=== PATIENT | female | born 1995 | race Caucasian/White ===

== ENCOUNTER 2018-06-30 13:27 | Emergency (ER) | payer BC, MEDICAID ==
[2018-06-30] MEDS: IBUPROFEN 600 MG TAB PO (14:25)
== END 2018-06-30 16:22 | disposition home or self-care (01) ==
LOC: FTE 13:27
DX: M79.604 Pain in right leg (principal); I10 Essential (primary) hypertension
CPT/HCPCS: 93971; 99284-25

== ENCOUNTER 2018-08-23 21:57 | Inpatient (IN) | payer BC ==
[2018-08-23 22:35] LABS: ADD MAN DIFF? NO
[2018-08-23] MEDS: HYDROmorphONE 1 MG/ML SYG IV (22:35)
[2018-08-23] MEDS: ONDANSETRON 4 MG INJ IV (22:35)
[2018-08-23] MEDS: SOD CHLORIDE 0.9% 1,000 ML IV (22:35)
[2018-08-23 22:36] LABS: WHITE BLOOD COUNT 10.6 10^3/ul (4.8-10.8)
[2018-08-23 22:36] LABS: BASOPHILS % 0.1 % (0.0-2.0); HEMATOCRIT 46.8 % (37.0-47.0); HEMOGLOBIN 15.3 g/dl (12.0-16.0); MEAN CORPUSCULAR HEMOGLOBIN 30.2 pg (29.0-33.0); MEAN CORPUSCULAR HGB CONC 32.7 g/dl (32.0-37.0); MEAN CORPUSCULAR VOLUME 92.5 fl (82.0-101.0); MEAN PLATELET VOLUME 10.6 fl (7.4-10.4); MONOCYTE # 0.6 10^3/ul (0.3-0.9); MONOCYTES % 5.3 % (0.0-11.0); NEUTROPHIL # 7.9 10^3/ul (1.6-7.5); NEUTROPHILS % 74.8 % (39.0-77.0); PLATELET COUNT 333 10^3/UL (140-415); RED BLOOD COUNT 5.06 10^6/ul (4.20-5.40); RED CELL DISTRIBUTION WIDTH 12.9 % (11.5-14.5)
[2018-08-23 22:54] LABS: ANION GAP 16 (5-13); BLOOD UREA NITROGEN 20 mg/dl (7-20); CALCIUM 9.2 mg/dl (8.4-10.2); CARBON DIOXIDE 22 mmol/L (21-31); CHLORIDE 105 mmol/L (97-110); CREATININE 0.67 mg/dl (0.44-1.00); Estimated GFR > 60 mL/min (>60); GLUCOSE 185 mg/dl (70-220); POTASSIUM 4.4 mmol/L (3.5-5.1); SODIUM 143 mmol/L (135-144)
[2018-08-23 22:55] LABS: INR 0.89; PROTIME 12.2 Sec (11.9-14.9)
[2018-08-23 22:56] LABS: PARTIAL THROMBOPLASTIN TIME 25.3 Sec (23.0-35.0)
[2018-08-23] MEDS ORDERED: ACETAMINOPHEN 325 MG TAB PO (23:00)
[2018-08-23] MEDS ORDERED: ONDANSETRON 4 MG INJ IV (23:00)
[2018-08-23] MEDS: HYDROmorphONE 0.5 MG/0.5 ML SYG IV (23:59)
[2018-08-24] MEDS ORDERED: morphine 2 MG INJ IV (01:00)
[2018-08-24] MEDS: HYDROmorphONE 1 MG/ML SYG IV ×6 (02:30→23:30)
[2018-08-24] MEDS ORDERED: PATIENT'S OWN MEDICATION PO (09:00)
[2018-08-24] MEDS: ONDANSETRON 4 MG INJ IV (09:12)
[2018-08-24] MEDS: MAGNESIUM OXIDE 400 MG TAB PO ×2 (09:12→21:53)
[2018-08-24] MEDS: ENOXAPARIN 30 MG/0.3 ML SYG SC (09:18)
[2018-08-24] MEDS: ACETAZOLAMIDE 250 MG TAB PO ×2 (09:33→21:53)
[2018-08-24] MEDS: predniSONE 20 MG TAB PO (10:56)
[2018-08-24] MEDS: ZONISAMIDE 100 MG CAP PO (21:51)
[2018-08-24] MEDS: NORTRIPTYLINE 10 MG CAP PO (21:51)
[2018-08-24] MEDS: DOCUSATE SODIUM 100 MG CAP PO (21:53)
[2018-08-25 05:35] LABS: ADD MAN DIFF? NO
[2018-08-25 05:37] LABS: BASOPHILS % 0.2 % (0.0-2.0); HEMATOCRIT 47.3 % (37.0-47.0); HEMOGLOBIN 15.6 g/dl (12.0-16.0); LYMPHOCYTES # 2.6 10^3/ul (0.8-2.9); MEAN CORPUSCULAR VOLUME 93.8 fl (82.0-101.0); MEAN PLATELET VOLUME 10.8 fl (7.4-10.4); MONOCYTE # 0.6 10^3/ul (0.3-0.9); MONOCYTES % 5.1 % (0.0-11.0); NEUTROPHIL # 8.5 10^3/ul (1.6-7.5); NEUTROPHILS % 72.1 % (39.0-77.0); PLATELET COUNT 323 10^3/UL (140-415); RED BLOOD COUNT 5.04 10^6/ul (4.20-5.40); RED CELL DISTRIBUTION WIDTH 12.9 % (11.5-14.5)
[2018-08-25 05:37] LABS: WHITE BLOOD COUNT 11.8 10^3/ul (4.8-10.8)
[2018-08-25] MEDS: HYDROmorphONE 1 MG/ML SYG IV ×4 (05:43→20:57)
[2018-08-25 06:00] LABS: HEMOGLOBIN A1C 5.5 % (0-5.9)
[2018-08-25 06:28] LABS: ALANINE AMINOTRANSFERASE 20 IU/L (13-69); ALBUMIN 4.2 g/dl (3.3-4.9); ALBUMIN/GLOBULIN RATIO 1.27; ALKALINE PHOSPHATASE 65 IU/L (42-121); ANION GAP 13 (5-13); ASPARTATE AMINO TRANSFERASE 18 IU/L (15-46); BILIRUBIN,INDIRECT 0.2 mg/dl (0-1.1); BILIRUBIN,TOTAL 0.2 mg/dl (0.2-1.3); BLOOD UREA NITROGEN 14 mg/dl (7-20); CALCIUM 9.7 mg/dl (8.4-10.2); CARBON DIOXIDE 18 mmol/L (21-31); CHLORIDE 107 mmol/L (97-110); CREATININE 0.82 mg/dl (0.44-1.00); Estimated GFR > 60 mL/min (>60); GLUCOSE 129 mg/dl (70-220); SODIUM 138 mmol/L (135-144); TOTAL PROTEIN 7.5 g/dl (6.1-8.1)
[2018-08-25] MEDS: GIANVI PO (09:27)
[2018-08-25] MEDS: ENOXAPARIN 30 MG/0.3 ML SYG SC (09:27)
[2018-08-25] MEDS: predniSONE 20 MG TAB PO (09:28)
[2018-08-25] MEDS: ACETAZOLAMIDE 250 MG TAB PO ×2 (09:28→20:57)
[2018-08-25] MEDS: MAGNESIUM OXIDE 400 MG TAB PO ×2 (09:28→20:57)
[2018-08-25] MEDS: DOCUSATE SODIUM 100 MG CAP PO ×2 (09:28→20:57)
[2018-08-25] MEDS: ZONISAMIDE 100 MG CAP PO (20:57)
[2018-08-25] MEDS: NORTRIPTYLINE 10 MG CAP PO (21:01)
[2018-08-26] MEDS: HYDROmorphONE 1 MG/ML SYG IV ×6 (01:58→22:26)
[2018-08-26] MEDS: predniSONE 20 MG TAB PO (09:44)
[2018-08-26] MEDS: GIANVI PO (09:44)
[2018-08-26] MEDS: MAGNESIUM OXIDE 400 MG TAB PO ×2 (09:44→20:51)
[2018-08-26] MEDS: DOCUSATE SODIUM 100 MG CAP PO ×2 (09:44→20:51)
[2018-08-26] MEDS: ACETAZOLAMIDE 250 MG TAB PO ×2 (09:44→20:51)
[2018-08-26] MEDS: ENOXAPARIN 30 MG/0.3 ML SYG SC (09:48)
[2018-08-26] MEDS: BISACODYL 10 MG SUPP PR (11:08)
[2018-08-26] MEDS: SENNA TAB PO ×2 (12:28→20:51)
[2018-08-26] MEDS: ZONISAMIDE 100 MG CAP PO (20:51)
[2018-08-26] MEDS: NORTRIPTYLINE 10 MG CAP PO (20:51)
[2018-08-27] MEDS: ACETAMINOPHEN 325 MG TAB PO ×3 (02:26→20:30)
[2018-08-27] MEDS: HYDROmorphONE 1 MG/ML SYG IV ×5 (03:38→20:30)
[2018-08-27] MEDS: ONDANSETRON 4 MG INJ IV (09:16)
[2018-08-27] MEDS: NACL 0.9% 3 ML SYG IV (09:23)
[2018-08-27] MEDS: ENOXAPARIN 30 MG/0.3 ML SYG SC (09:28)
[2018-08-27] MEDS: MAGNESIUM OXIDE 400 MG TAB PO ×2 (09:35→20:30)
[2018-08-27] MEDS: DOCUSATE SODIUM 100 MG CAP PO ×2 (09:35→20:30)
[2018-08-27] MEDS: SENNA TAB PO ×2 (09:35→20:29)
[2018-08-27] MEDS: ACETAZOLAMIDE 250 MG TAB PO ×2 (09:35→20:30)
[2018-08-27] MEDS: predniSONE 20 MG TAB PO (09:38)
[2018-08-27] MEDS: GIANVI PO (09:39)
[2018-08-27] MEDS: ZONISAMIDE 100 MG CAP PO (20:30)
[2018-08-27] MEDS: NORTRIPTYLINE 10 MG CAP PO (22:52)
[2018-08-28] MEDS: HYDROmorphONE 1 MG/ML SYG IV ×6 (00:23→23:16)
[2018-08-28] MEDS: PANTOPRAZOLE (EC) 40 MG TAB PO ×2 (04:44→08:58)
[2018-08-28 05:10] LABS: ADD MAN DIFF? NO
[2018-08-28 05:18] LABS: ABNORMAL IP MESSAGE 1; BASOPHILS % 0.2 % (0.0-2.0); EOSINOPHILS # 0.1 10^3/ul (0.0-0.5); EOSINOPHILS % 0.3 % (0.0-7.0); HEMATOCRIT 45.1 % (37.0-47.0); LYMPHOCYTES % 36.6 % (15.0-51.0); MEAN CORPUSCULAR HEMOGLOBIN 30.8 pg (29.0-33.0); MEAN CORPUSCULAR HGB CONC 33.3 g/dl (32.0-37.0); MEAN CORPUSCULAR VOLUME 92.6 fl (82.0-101.0); MEAN PLATELET VOLUME 10.5 fl (7.4-10.4); MONOCYTE # 1.1 10^3/ul (0.3-0.9); MONOCYTES % 6.8 % (0.0-11.0); NEUTROPHIL # 9.1 10^3/ul (1.6-7.5); NEUTROPHILS % 55.4 % (39.0-77.0); PLATELET COUNT 346 10^3/UL (140-415); RED BLOOD COUNT 4.87 10^6/ul (4.20-5.40)
[2018-08-28 05:18] LABS: WHITE BLOOD COUNT 16.4 10^3/ul (4.8-10.8)
[2018-08-28 05:38] LABS: ANION GAP 11 (5-13); BLOOD UREA NITROGEN 20 mg/dl (7-20); CALCIUM 9.1 mg/dl (8.4-10.2); CARBON DIOXIDE 19 mmol/L (21-31); CHLORIDE 107 mmol/L (97-110); CREATININE 0.92 mg/dl (0.44-1.00); Estimated GFR > 60 mL/min (>60); GLUCOSE 99 mg/dl (70-220); POTASSIUM 3.7 mmol/L (3.5-5.1); SODIUM 137 mmol/L (135-144)
[2018-08-28 05:48] LABS: POSITIVE DIFF @See below
[2018-08-28] MEDS: MAGNESIUM OXIDE 400 MG TAB PO ×2 (08:58→21:00)
[2018-08-28] MEDS: SENNA TAB PO ×2 (08:58→21:00)
[2018-08-28] MEDS: ACETAZOLAMIDE 250 MG TAB PO ×2 (08:58→21:00)
[2018-08-28] MEDS: predniSONE 20 MG TAB PO (08:58)
[2018-08-28] MEDS: GIANVI PO (08:59)
[2018-08-28] MEDS: DOCUSATE SODIUM 100 MG CAP PO ×3 (08:59→23:20)
[2018-08-28] MEDS ORDERED: THROMBIN 5000 UNIT VIAL (18:36)
[2018-08-28] MEDS ORDERED: MIDAZOLAM 1 MG/ML 2 ML INJ (20:11)
[2018-08-28] MEDS ORDERED: ONDANSETRON 4 MG INJ (20:47)
[2018-08-28] MEDS ORDERED: CEFAZOLIN 1 GM INJ (20:47)
[2018-08-28] MEDS ORDERED: DEXAMETHASONE 4 MG/ML 5 ML INJ (20:47)
[2018-08-28] MEDS: ZONISAMIDE 100 MG CAP PO (21:00)
[2018-08-28] MEDS ORDERED: AL HYDROX/MG HYDROX/SIMETH 30 ML CUP PO (21:30)
[2018-08-28] MEDS ORDERED: NACL 0.9% 3 ML SYG IV (21:30)
[2018-08-28] MEDS ORDERED: ONDANSETRON 4 MG INJ IV ×2 (21:30→22:30)
[2018-08-28] MEDS ORDERED: NALOXONE (0.4 MG/ML) INJ IV (21:30)
[2018-08-28] MEDS: GELATIN SIZE 100 SPONGE ×2 (21:42→21:43)
[2018-08-28] MEDS: HEPARIN 1000 UNITS/ML 10 ML INJ (21:44)
[2018-08-28] MEDS: CEFAZOLIN 1 GM INJ (21:44)
[2018-08-28] MEDS: HEMOSTATIC MATRIX/ THROMBIN 1 EA SYG ZFS (21:46)
[2018-08-28] MEDS: CEFAZOLIN 2 GM/50 ML (PMX) 50 ML IVPB (22:00)
[2018-08-28] MEDS ORDERED: LABETALOL HCL 20MG INJ IV (22:30)
[2018-08-28] MEDS ORDERED: HYDROmorphONE 0.5 MG/0.5 ML SYG IV ×3 (22:30)
[2018-08-28] MEDS ORDERED: LIDOCAINE 2% (SDV) 5 ML INJ (23:10)
[2018-08-28] MEDS ORDERED: SUGAMMADEX SODIUM 200 MG/2 ML VIAL IV (23:10)
[2018-08-28] MEDS ORDERED: ROCURONIUM 50 MG INJ ×3 (23:10)
[2018-08-28] MEDS ORDERED: PROPOFOL 20 ML (23:10)
[2018-08-28] MEDS ORDERED: METOPROLOL 5 MG INJ ×2 (23:10)
[2018-08-28] MEDS ORDERED: ROPIVACAINE 0.5 % 30 ML VIAL (23:10)
[2018-08-28] MEDS: NORTRIPTYLINE 10 MG CAP PO (23:20)
[2018-08-28] MEDS: HYDROmorphONE 0.2 MG/ML PCA IV (23:34)
[2018-08-29] MEDS: ACETAMINOPHEN 325 MG TAB PO ×2 (00:48→20:14)
[2018-08-29 05:24] LABS: HEMATOCRIT 43.8 % (37.0-47.0); HEMOGLOBIN 14.4 g/dl (12.0-16.0)
[2018-08-29 05:55] LABS: ANION GAP 9 (5-13); BLOOD UREA NITROGEN 18 mg/dl (7-20); CALCIUM 8.9 mg/dl (8.4-10.2); CARBON DIOXIDE 19 mmol/L (21-31); CHLORIDE 106 mmol/L (97-110); CREATININE 0.77 mg/dl (0.44-1.00); Estimated GFR > 60 mL/min (>60); GLUCOSE 120 mg/dl (70-220); POTASSIUM 3.8 mmol/L (3.5-5.1); SODIUM 134 mmol/L (135-144)
[2018-08-29] MEDS: HYDROmorphONE 0.2 MG/ML PCA IV ×3 (06:36→18:31)
[2018-08-29] MEDS: CEFAZOLIN 2 GM/50 ML (PMX) 50 ML IVPB ×3 (08:03→22:09)
[2018-08-29] MEDS: DOCUSATE SODIUM 100 MG CAP PO ×4 (09:00→20:20)
[2018-08-29] MEDS: GIANVI PO (11:17)
[2018-08-29] MEDS: MAGNESIUM OXIDE 400 MG TAB PO ×2 (11:18→20:15)
[2018-08-29] MEDS: ACETAZOLAMIDE 250 MG TAB PO ×2 (11:18→20:15)
[2018-08-29] MEDS: SENNA TAB PO ×2 (11:19→20:15)
[2018-08-29] MEDS: predniSONE 20 MG TAB PO (11:19)
[2018-08-29] MEDS: HYDROmorphONE 1 MG/ML SYG IV (20:12)
[2018-08-29] MEDS: NORTRIPTYLINE 10 MG CAP PO (20:15)
[2018-08-29] MEDS: ZONISAMIDE 100 MG CAP PO (20:15)
[2018-08-30] MEDS: HYDROmorphONE 0.2 MG/ML PCA IV ×3 (00:06→14:53)
[2018-08-30] MEDS: HYDROmorphONE 1 MG/ML SYG IV ×2 (00:12→21:45)
[2018-08-30] MEDS: ACETAMINOPHEN 325 MG TAB PO (02:09)
[2018-08-30] MEDS: PANTOPRAZOLE (EC) 40 MG TAB PO (06:05)
[2018-08-30] MEDS: CEFAZOLIN 2 GM/50 ML (PMX) 50 ML IVPB ×3 (06:05→21:52)
[2018-08-30] MEDS: DOCUSATE SODIUM 100 MG CAP PO ×4 (09:00→21:52)
[2018-08-30] MEDS: SENNA TAB PO ×2 (09:11→21:52)
[2018-08-30] MEDS: ACETAZOLAMIDE 250 MG TAB PO ×2 (09:11→22:20)
[2018-08-30] MEDS: MAGNESIUM OXIDE 400 MG TAB PO ×2 (09:11→21:52)
[2018-08-30] MEDS: predniSONE 10 MG TAB PO (09:11)
[2018-08-30] MEDS: GIANVI PO (09:11)
[2018-08-30] MEDS: KETOROLAC 30 MG INJ IV ×2 (10:47→19:26)
[2018-08-30] MEDS: NORTRIPTYLINE 10 MG CAP PO (22:21)
[2018-08-30] MEDS: ZONISAMIDE 100 MG CAP PO (22:21)
[2018-08-31] MEDS: HYDROmorphONE 0.2 MG/ML PCA IV ×4 (01:11→22:17)
[2018-08-31] MEDS: KETOROLAC 30 MG INJ IV ×3 (02:05→18:10)
[2018-08-31] MEDS: CEFAZOLIN 2 GM/50 ML (PMX) 50 ML IVPB ×3 (05:17→21:03)
[2018-08-31] MEDS: PANTOPRAZOLE (EC) 40 MG TAB PO (05:17)
[2018-08-31] MEDS: HYDROmorphONE 1 MG/ML SYG IV ×2 (05:18→15:38)
[2018-08-31] MEDS: GIANVI PO (09:00)
[2018-08-31] MEDS: DOCUSATE SODIUM 100 MG CAP PO ×4 (09:00→21:02)
[2018-08-31] MEDS: ACETAZOLAMIDE 250 MG TAB PO ×3 (09:00→21:04)
[2018-08-31] MEDS: predniSONE 10 MG TAB PO (09:18)
[2018-08-31] MEDS: SENNA TAB PO ×2 (09:18→21:03)
[2018-08-31] MEDS: MAGNESIUM OXIDE 400 MG TAB PO ×2 (09:19→21:03)
[2018-08-31] MEDS: NORTRIPTYLINE 10 MG CAP PO (21:02)
[2018-08-31] MEDS: ZONISAMIDE 100 MG CAP PO (21:03)
[2018-09-01] MEDS: HYDROmorphONE 1 MG/ML SYG IV (00:48)
[2018-09-01] MEDS: ONDANSETRON 4 MG INJ IV ×4 (04:54→19:13)
[2018-09-01] MEDS: PANTOPRAZOLE (EC) 40 MG TAB PO (05:41)
[2018-09-01] MEDS: HYDROmorphONE 0.2 MG/ML PCA IV ×2 (06:57→20:46)
[2018-09-01] MEDS: DOCUSATE SODIUM 100 MG CAP PO ×4 (09:00→20:47)
[2018-09-01 09:47] LABS: ADD MAN DIFF? NO
[2018-09-01 09:48] LABS: BASOPHIL # 0.1 10^3/ul (0.0-0.1); BASOPHILS % 0.3 % (0.0-2.0); EOSINOPHILS # 0.1 10^3/ul (0.0-0.5); EOSINOPHILS % 0.5 % (0.0-7.0); HEMATOCRIT 40.2 % (37.0-47.0); HEMOGLOBIN 13.3 g/dl (12.0-16.0); LYMPHOCYTES # 3.6 10^3/ul (0.8-2.9); LYMPHOCYTES % 18.6 % (15.0-51.0); MEAN CORPUSCULAR HEMOGLOBIN 30.6 pg (29.0-33.0); MEAN CORPUSCULAR HGB CONC 33.1 g/dl (32.0-37.0); MEAN CORPUSCULAR VOLUME 92.6 fl (82.0-101.0); MEAN PLATELET VOLUME 10.3 fl (7.4-10.4); MONOCYTE # 1.2 10^3/ul (0.3-0.9); MONOCYTES % 6.3 % (0.0-11.0); NEUTROPHIL # 14.1 10^3/ul (1.6-7.5); NEUTROPHILS % 73.8 % (39.0-77.0); PLATELET COUNT 295 10^3/UL (140-415); RED BLOOD COUNT 4.34 10^6/ul (4.20-5.40); RED CELL DISTRIBUTION WIDTH 12.9 % (11.5-14.5)
[2018-09-01 09:48] LABS: WHITE BLOOD COUNT 19.1 10^3/ul (4.8-10.8)
[2018-09-01 10:19] LABS: ANION GAP 10 (5-13); BLOOD UREA NITROGEN 12 mg/dl (7-20); CALCIUM 8.7 mg/dl (8.4-10.2); CARBON DIOXIDE 18 mmol/L (21-31); CHLORIDE 108 mmol/L (97-110); CREATININE 0.64 mg/dl (0.44-1.00); Estimated GFR > 60 mL/min (>60); GLUCOSE 116 mg/dl (70-220); SODIUM 136 mmol/L (135-144)
[2018-09-01 10:26] LABS: POTASSIUM 2.9 mmol/L (3.5-5.1)
[2018-09-01] MEDS: BISACODYL 10 MG SUPP PR (10:50)
[2018-09-01] MEDS: GIANVI PO (10:51)
[2018-09-01] MEDS: MAGNESIUM OXIDE 400 MG TAB PO ×2 (10:51→20:47)
[2018-09-01] MEDS: SENNA TAB PO ×2 (10:51→20:46)
[2018-09-01] MEDS: ACETAZOLAMIDE 250 MG TAB PO ×2 (10:51→20:47)
[2018-09-01] MEDS: predniSONE 10 MG TAB PO (10:56)
[2018-09-01] MEDS: KETOROLAC 30 MG INJ IV ×2 (10:58→17:53)
[2018-09-01] MEDS: POTASSIUM CHLORIDE 100 ML IVPB ×2 (12:56→15:01)
[2018-09-01] MEDS: ZONISAMIDE 100 MG CAP PO (20:47)
[2018-09-01] MEDS: NORTRIPTYLINE 10 MG CAP PO (20:47)
[2018-09-01 20:53] LABS: POTASSIUM 3.4 mmol/L (3.5-5.1)
[2018-09-01] MEDS ORDERED: POTASSIUM CHLORIDE 20 MEQ POWDER FOR ORAL SOLN (21:50)
[2018-09-01] MEDS: POTASSIUM CHLORIDE (SR) 20 MEQ TAB PO (22:27)
[2018-09-02] MEDS: PANTOPRAZOLE (EC) 40 MG TAB PO (05:31)
[2018-09-02] MEDS: SENNA TAB PO ×2 (08:38→21:00)
[2018-09-02] MEDS: MAGNESIUM OXIDE 400 MG TAB PO ×2 (08:39→21:14)
[2018-09-02] MEDS: DOCUSATE SODIUM 100 MG CAP PO ×4 (08:40→21:00)
[2018-09-02] MEDS: ACETAZOLAMIDE 250 MG TAB PO ×2 (08:41→21:15)
[2018-09-02] MEDS: GIANVI PO (08:42)
[2018-09-02] MEDS: ONDANSETRON 4 MG INJ IV (16:49)
[2018-09-02] MEDS: HYDROCODONE/APAP (5/325) TAB PO ×2 (18:34→23:11)
[2018-09-02] MEDS: KETOROLAC 15 MG INJ IV (21:12)
[2018-09-02] MEDS: NORTRIPTYLINE 10 MG CAP PO (21:14)
[2018-09-02] MEDS: ZONISAMIDE 100 MG CAP PO (21:14)
[2018-09-03] MEDS: KETOROLAC 15 MG INJ IV ×2 (04:16→12:09)
[2018-09-03 05:03] LABS: ADD MAN DIFF? NO
[2018-09-03 05:05] LABS: BASOPHILS % 0.3 % (0.0-2.0); EOSINOPHILS # 0.2 10^3/ul (0.0-0.5); EOSINOPHILS % 1.7 % (0.0-7.0); HEMATOCRIT 34.3 % (37.0-47.0); HEMOGLOBIN 11.4 g/dl (12.0-16.0); LYMPHOCYTES % 34.9 % (15.0-51.0); MEAN CORPUSCULAR HEMOGLOBIN 30.6 pg (29.0-33.0); MEAN CORPUSCULAR HGB CONC 33.2 g/dl (32.0-37.0); MEAN CORPUSCULAR VOLUME 92.2 fl (82.0-101.0); MEAN PLATELET VOLUME 10.3 fl (7.4-10.4); MONOCYTE # 0.7 10^3/ul (0.3-0.9); MONOCYTES % 6.1 % (0.0-11.0); NEUTROPHIL # 6.5 10^3/ul (1.6-7.5); NEUTROPHILS % 56.5 % (39.0-77.0); PLATELET COUNT 270 10^3/UL (140-415); RED BLOOD COUNT 3.72 10^6/ul (4.20-5.40); RED CELL DISTRIBUTION WIDTH 13.2 % (11.5-14.5)
[2018-09-03 05:05] LABS: WHITE BLOOD COUNT 11.5 10^3/ul (4.8-10.8)
[2018-09-03 05:30] LABS: ANION GAP 9 (5-13); BLOOD UREA NITROGEN 14 mg/dl (7-20); CALCIUM 8.5 mg/dl (8.4-10.2); CARBON DIOXIDE 18 mmol/L (21-31); CHLORIDE 111 mmol/L (97-110); CREATININE 0.63 mg/dl (0.44-1.00); Estimated GFR > 60 mL/min (>60); GLUCOSE 102 mg/dl (70-220); SODIUM 138 mmol/L (135-144)
[2018-09-03 05:48] LABS: POTASSIUM 2.9 mmol/L (3.5-5.1)
[2018-09-03] MEDS: PANTOPRAZOLE (EC) 40 MG TAB PO (06:01)
[2018-09-03] MEDS: POTASSIUM CHLORIDE (SR) 20 MEQ TAB PO ×2 (06:30→10:23)
[2018-09-03] MEDS: SENNA TAB PO ×2 (09:00→21:00)
[2018-09-03] MEDS: DOCUSATE SODIUM 100 MG CAP PO ×4 (09:00→21:00)
[2018-09-03] MEDS: ACETAZOLAMIDE 250 MG TAB PO ×2 (09:16→21:17)
[2018-09-03] MEDS: MAGNESIUM OXIDE 400 MG TAB PO ×2 (09:17→21:17)
[2018-09-03] MEDS: HYDROCODONE/APAP (5/325) TAB PO ×4 (09:19→23:32)
[2018-09-03] MEDS: GIANVI PO (09:20)
[2018-09-03 16:32] LABS: ADD UMIC YES; UR ASCORBIC ACID NEGATIVE (NEGATIVE); UR BACTERIA MANY /HPF (NONE SEEN); UR BILIRUBIN (Dip) NEGATIVE (NEGATIVE); UR BLOOD (Dip) 3+ mg/dL (NEGATIVE); UR CLARITY SLIGHTLY CLOUDY (CLEAR); UR COLOR YELLOW (YELLOW); UR GLUCOSE (Dip) NEGATIVE (NEGATIVE); UR KETONES (Dip) TRACE mg/dL (NEGATIVE); UR LEUKOCYTE ESTERASE (Dip) 2+ Leu/ul (NEGATIVE); UR MUCUS FEW /HPF (NONE SEEN); UR NITRITE (Dip) NEGATIVE (NEGATIVE); UR RBC > 182 /HPF (0-5); UR SPECIFIC GRAVITY (Dip) 1.013 (1.003-1.030); UR SQUAMOUS EPITHELIAL CELL FEW /HPF (FEW); UR TOTAL PROTEIN (Dip) NEGATIVE (NEGATIVE); UR UROBILINOGEN (Dip) NEGATIVE (NEGATIVE); UR WBC 63 /HPF (0-5)
[2018-09-03] MEDS: ZONISAMIDE 100 MG CAP PO (21:17)
[2018-09-03] MEDS: NORTRIPTYLINE 10 MG CAP PO (21:17)
[2018-09-04] MEDS: HYDROCODONE/APAP (5/325) TAB PO ×3 (04:10→16:42)
[2018-09-04] MEDS: PANTOPRAZOLE (EC) 40 MG TAB PO (06:17)
[2018-09-04 08:35] LABS: ADD MAN DIFF? NO
[2018-09-04 08:53] LABS: BASOPHILS % 0.4 % (0.0-2.0); EOSINOPHILS # 0.3 10^3/ul (0.0-0.5); EOSINOPHILS % 2.9 % (0.0-7.0); HEMATOCRIT 33.2 % (37.0-47.0); HEMOGLOBIN 10.9 g/dl (12.0-16.0); LYMPHOCYTES # 3.2 10^3/ul (0.8-2.9); LYMPHOCYTES % 37.1 % (15.0-51.0); MEAN CORPUSCULAR HEMOGLOBIN 30.6 pg (29.0-33.0); MEAN CORPUSCULAR HGB CONC 32.8 g/dl (32.0-37.0); MEAN CORPUSCULAR VOLUME 93.3 fl (82.0-101.0); MEAN PLATELET VOLUME 10.5 fl (7.4-10.4); MONOCYTE # 0.5 10^3/ul (0.3-0.9); NEUTROPHIL # 4.6 10^3/ul (1.6-7.5); NEUTROPHILS % 53.1 % (39.0-77.0); PLATELET COUNT 253 10^3/UL (140-415); RED BLOOD COUNT 3.56 10^6/ul (4.20-5.40); RED CELL DISTRIBUTION WIDTH 13.2 % (11.5-14.5)
[2018-09-04 08:53] LABS: WHITE BLOOD COUNT 8.6 10^3/ul (4.8-10.8)
[2018-09-04 08:59] LABS: ANION GAP 11 (5-13); BLOOD UREA NITROGEN 11 mg/dl (7-20); CALCIUM 8.7 mg/dl (8.4-10.2); CARBON DIOXIDE 17 mmol/L (21-31); CHLORIDE 112 mmol/L (97-110); CREATININE 0.64 mg/dl (0.44-1.00); Estimated GFR > 60 mL/min (>60); GLUCOSE 96 mg/dl (70-220); POTASSIUM 3.1 mmol/L (3.5-5.1); SODIUM 140 mmol/L (135-144)
[2018-09-04] MEDS: DOCUSATE SODIUM 100 MG CAP PO ×2 (09:00)
[2018-09-04] MEDS: GIANVI PO (09:14)
[2018-09-04] MEDS: MAGNESIUM OXIDE 400 MG TAB PO (09:15)
[2018-09-04] MEDS: SENNA TAB PO (09:15)
[2018-09-04] MEDS: ACETAZOLAMIDE 250 MG TAB PO (09:15)
[2018-09-04] MEDS: POTASSIUM CHLORIDE (SR) 20 MEQ TAB PO (12:46)
[2018-09-04] MEDS ORDERED: MAGNESIUM SULFATE 2 GM/50 ML 50 ML IVPB (15:00)
== END 2018-09-04 19:11 | disposition home or self-care (01) | DRG 460 ==
LOC: MS1 22:59 → E/R 21:57 → MS1 08-30 15:34 → ICU 08-28 23:09
PROC: 0SG00A0 Fusion of Lumbar Vertebral Joint with Interbody Fusion Device, Anterior Approach, Anterior Column, Open Approach (ICD-10-PCS; principal; 2018-08-28 18:30)
PROC: 0SB20ZZ Excision of Lumbar Vertebral Disc, Open Approach (ICD-10-PCS; 2018-08-28 18:30)
PROC: 0SG30A0 Fusion of Lumbosacral Joint with Interbody Fusion Device, Anterior Approach, Anterior Column, Open Approach (ICD-10-PCS; 2018-08-28 18:30)
PROC: 0SB40ZZ Excision of Lumbosacral Disc, Open Approach (ICD-10-PCS; 2018-08-28 18:30)
DX: M54.16 Radiculopathy, lumbar region (principal); M51.37 Other intervertebral disc degeneration, lumbosacral region; E66.9 Obesity, unspecified; Z68.34 Body mass index [BMI] 34.0-34.9, adult; R10.9 Unspecified abdominal pain; K59.00 Constipation, unspecified
CPT/HCPCS: 36415; 72100; 72131; 72158; 80048; 80053; 81001; 81025; 83036; 84132; 85014; 85018; 85025; 85610; 85730; 86850; 86900; 86901; 86920; 87081; 87086; 88304; 93971; 96374; 96375; 96376; 97110; 97116; 97163; 97167; 97530; 99285-25

== ENCOUNTER 2018-09-11 13:33 | Emergency (ER) | payer BC ==
[2018-09-11] MEDS: HYDROCODONE/APAP (5/325) TAB PO (13:59)
[2018-09-11] MEDS: ONDANSETRON (ODT) 4 MG TAB ODT (13:59)
[2018-09-11] MEDS ORDERED: CA GLUCONATE (GM) 10% 10ML INJ (15:48)
== END 2018-09-11 15:58 | disposition home or self-care (01) ==
LOC: E/R 13:33
DX: M79.605 Pain in left leg (principal); J45.909 Unspecified asthma, uncomplicated
CPT/HCPCS: 93971; 99284-25

== ENCOUNTER 2018-09-24 14:58 | Emergency (ER) | payer BC ==
[2018-09-24] MEDS: ONDANSETRON 4 MG INJ IV (17:33)
[2018-09-24] MEDS: SOD CHLORIDE 0.9% 1,000 ML IV (17:34)
[2018-09-24 17:42] LABS: ADD MAN DIFF? NO
[2018-09-24 17:49] LABS: BASOPHILS % 0.4 % (0.0-2.0); EOSINOPHILS # 0.1 10^3/ul (0.0-0.5); HEMATOCRIT 47.2 % (37.0-47.0); LYMPHOCYTES # 2.6 10^3/ul (0.8-2.9); LYMPHOCYTES % 37.2 % (15.0-51.0); MEAN CORPUSCULAR HEMOGLOBIN 29.8 pg (29.0-33.0); MEAN CORPUSCULAR HGB CONC 31.8 g/dl (32.0-37.0); MEAN CORPUSCULAR VOLUME 93.8 fl (82.0-101.0); MEAN PLATELET VOLUME 10.4 fl (7.4-10.4); MONOCYTE # 0.4 10^3/ul (0.3-0.9); MONOCYTES % 6.1 % (0.0-11.0); NEUTROPHIL # 3.9 10^3/ul (1.6-7.5); PLATELET COUNT 423 10^3/UL (140-415); RED BLOOD COUNT 5.03 10^6/ul (4.20-5.40)
[2018-09-24 17:49] LABS: WHITE BLOOD COUNT 7.1 10^3/ul (4.8-10.8)
[2018-09-24] MEDS: HYDROmorphONE 0.5 MG/0.5 ML SYG IV (18:01)
[2018-09-24 18:07] LABS: ALANINE AMINOTRANSFERASE 38 IU/L (13-69); ALBUMIN 4.8 g/dl (3.3-4.9); ALKALINE PHOSPHATASE 121 IU/L (42-121); ANION GAP 15 (5-13); ASPARTATE AMINO TRANSFERASE 33 IU/L (15-46); BILIRUBIN,INDIRECT 0.1 mg/dl (0-1.1); BILIRUBIN,TOTAL 0.1 mg/dl (0.2-1.3); BLOOD UREA NITROGEN 11 mg/dl (7-20); CALCIUM 10.6 mg/dl (8.4-10.2); CARBON DIOXIDE 19 mmol/L (21-31); CHLORIDE 108 mmol/L (97-110); CREATININE 0.79 mg/dl (0.44-1.00); Estimated GFR > 60 mL/min (>60); GLUCOSE 105 mg/dl (70-220); LIPASE 296 U/L (23-300); POTASSIUM 3.7 mmol/L (3.5-5.1); SODIUM 142 mmol/L (135-144); TOTAL PROTEIN 8.8 g/dl (6.1-8.1)
[2018-09-24 18:33] LABS: ADD UMIC YES; UR AMORPHOUS CRYSTAL MODERATE /HPF (NONE SEEN); UR ASCORBIC ACID NEGATIVE (NEGATIVE); UR BACTERIA MODERATE /HPF (NONE SEEN); UR BILIRUBIN (Dip) NEGATIVE (NEGATIVE); UR BLOOD (Dip) 1+ mg/dL (NEGATIVE); UR CLARITY CLOUDY (CLEAR); UR COLOR YELLOW (YELLOW); UR GLUCOSE (Dip) NEGATIVE (NEGATIVE); UR KETONES (Dip) NEGATIVE (NEGATIVE); UR LEUKOCYTE ESTERASE (Dip) 1+ Leu/ul (NEGATIVE); UR MUCUS FEW /HPF (NONE SEEN); UR NITRITE (Dip) NEGATIVE (NEGATIVE); UR RBC 3 /HPF (0-5); UR SPECIFIC GRAVITY (Dip) 1.018 (1.003-1.030); UR SQUAMOUS EPITHELIAL CELL FEW /HPF (FEW); UR TOTAL PROTEIN (Dip) NEGATIVE (NEGATIVE); UR UROBILINOGEN (Dip) NEGATIVE (NEGATIVE); UR WBC 8 /HPF (0-5)
[2018-09-24] MEDS: SOD CHLORIDE 0.9% 100 ML (18:56)
[2018-09-24] MEDS: IOHEXOL 300MG/ML 150 ML BTL (18:57)
== END 2018-09-24 20:28 | disposition home or self-care (01) ==
LOC: FTE 14:58
DX: N30.90 Cystitis, unspecified without hematuria (principal); J45.909 Unspecified asthma, uncomplicated; N80.9 Endometriosis, unspecified
CPT/HCPCS: 36415; 74177; 80053; 81001; 81025; 83690; 84703; 85025; 96374; 96375; 99285-25

== ENCOUNTER 2018-11-07 21:49 | Inpatient (IN) | payer BC ==
[2018-11-07 22:49] LABS: ADD MAN DIFF? NO
[2018-11-07 22:53] LABS: BASOPHIL # 0.1 10^3/ul (0.0-0.1); BASOPHILS % 0.4 % (0.0-2.0); EOSINOPHILS # 0.2 10^3/ul (0.0-0.5); EOSINOPHILS % 0.9 % (0.0-7.0); HEMATOCRIT 43.4 % (37.0-47.0); LYMPHOCYTES # 3.9 10^3/ul (0.8-2.9); LYMPHOCYTES % 23.7 % (15.0-51.0); MEAN CORPUSCULAR HEMOGLOBIN 29.7 pg (29.0-33.0); MEAN CORPUSCULAR HGB CONC 32.3 g/dl (32.0-37.0); MEAN CORPUSCULAR VOLUME 92.1 fl (82.0-101.0); MEAN PLATELET VOLUME 10.7 fl (7.4-10.4); MONOCYTE # 1.4 10^3/ul (0.3-0.9); MONOCYTES % 8.3 % (0.0-11.0); NEUTROPHIL # 10.8 10^3/ul (1.6-7.5); NEUTROPHILS % 66.1 % (39.0-77.0); PLATELET COUNT 302 10^3/UL (140-415); RED BLOOD COUNT 4.71 10^6/ul (4.20-5.40)
[2018-11-07 22:53] LABS: WHITE BLOOD COUNT 16.3 10^3/ul (4.8-10.8)
[2018-11-07 23:07] LABS: ALANINE AMINOTRANSFERASE 29 IU/L (13-69); ALBUMIN 4.3 g/dl (3.3-4.9); ALKALINE PHOSPHATASE 83 IU/L (42-121); ANION GAP 15 (5-13); ASPARTATE AMINO TRANSFERASE 28 IU/L (15-46); BILIRUBIN,INDIRECT 0.2 mg/dl (0-1.1); BILIRUBIN,TOTAL 0.2 mg/dl (0.2-1.3); BLOOD UREA NITROGEN 16 mg/dl (7-20); CALCIUM 9.7 mg/dl (8.4-10.2); CARBON DIOXIDE 18 mmol/L (21-31); CHLORIDE 107 mmol/L (97-110); CREATININE 1.19 mg/dl (0.44-1.00); Estimated GFR 56 mL/min (>60); GLUCOSE 121 mg/dl (70-220); LIPASE 112 U/L (23-300); POTASSIUM 3.9 mmol/L (3.5-5.1); SODIUM 140 mmol/L (135-144); TOTAL PROTEIN 7.6 g/dl (6.1-8.1)
[2018-11-07 23:11] LABS: INR 0.89; PROTIME 12.1 Sec (11.9-14.9); PT RATIO 0.9
[2018-11-07 23:12] LABS: PARTIAL THROMBOPLASTIN TIME 27.3 Sec (23.0-35.0)
[2018-11-07] MEDS: SOD CHLORIDE 0.9% 1,000 ML IV (23:45)
[2018-11-07] MEDS: ONDANSETRON 4 MG INJ IV (23:45)
[2018-11-07] MEDS: HYDROmorphONE 1 MG/ML SYG IV (23:46)
[2018-11-08] MEDS: HYDROmorphONE 0.5 MG/0.5 ML SYG IV (02:07)
[2018-11-08] MEDS: HYDROmorphONE 1 MG/ML SYG IV ×4 (05:30→20:35)
[2018-11-08] MEDS: DIPHENHYDRAMINE 50 MG INJ IV (05:30)
[2018-11-08] MEDS ORDERED: ALBUTEROL HFA 8 GM INHALER INH (05:30)
[2018-11-08] MEDS: PANTOPRAZOLE (EC) 40 MG TAB PO (05:33)
[2018-11-08] MEDS: METHOCARBAMOL 750 MG TAB PO ×2 (08:18→20:37)
[2018-11-08] MEDS: SOD CHLORIDE 0.9% 1,000 ML IV ×2 (14:00→20:37)
[2018-11-08] MEDS ORDERED: METHOCARBAMOL 750 MG TAB PO (14:00)
[2018-11-08] MEDS ORDERED: ACETAMINOPHEN 500 MG TAB PO (14:00)
[2018-11-08] MEDS: ONDANSETRON 4 MG INJ IV (15:56)
[2018-11-08 16:42] LABS: ADD UMIC YES; UR ASCORBIC ACID NEGATIVE (NEGATIVE); UR BILIRUBIN (Dip) NEGATIVE (NEGATIVE); UR BLOOD (Dip) 1+ mg/dL (NEGATIVE); UR CLARITY CLEAR (CLEAR); UR COLOR STRAW (YELLOW); UR GLUCOSE (Dip) NEGATIVE (NEGATIVE); UR KETONES (Dip) NEGATIVE (NEGATIVE); UR LEUKOCYTE ESTERASE (Dip) NEGATIVE Leu/ul (NEGATIVE); UR MUCUS FEW /HPF (NONE SEEN); UR NITRITE (Dip) NEGATIVE (NEGATIVE); UR RBC 1 /HPF (0-5); UR SPECIFIC GRAVITY (Dip) 1.006 (1.003-1.030); UR SQUAMOUS EPITHELIAL CELL FEW /HPF (FEW); UR TOTAL PROTEIN (Dip) NEGATIVE (NEGATIVE); UR UROBILINOGEN (Dip) NEGATIVE (NEGATIVE); UR WBC 2 /HPF (0-5)
[2018-11-08] MEDS: CIPROFLOXACIN 500 MG TAB PO (18:17)
[2018-11-08] MEDS: HYDROCODONE/APAP (10/325) TAB PO ×2 (18:17→23:37)
[2018-11-09] MEDS: ETHINYL ESTRADIOL PO ×2 (00:55→21:13)
[2018-11-09] MEDS: HYDROmorphONE 1 MG/ML SYG IV ×5 (00:55→21:14)
[2018-11-09] MEDS: DROSPIRENONE PO ×2 (00:55→21:13)
[2018-11-09] MEDS: ONDANSETRON 4 MG INJ IV ×4 (00:56→17:09)
[2018-11-09] MEDS: HYDROCODONE/APAP (10/325) TAB PO ×3 (04:10→18:29)
[2018-11-09 05:00] LABS: ADD MAN DIFF? NO
[2018-11-09 05:09] LABS: WHITE BLOOD COUNT 9.3 10^3/ul (4.8-10.8)
[2018-11-09 05:09] LABS: BASOPHILS % 0.3 % (0.0-2.0); EOSINOPHILS # 0.1 10^3/ul (0.0-0.5); EOSINOPHILS % 1.2 % (0.0-7.0); HEMATOCRIT 36.3 % (37.0-47.0); HEMOGLOBIN 11.8 g/dl (12.0-16.0); LYMPHOCYTES # 3.4 10^3/ul (0.8-2.9); LYMPHOCYTES % 36.5 % (15.0-51.0); MEAN CORPUSCULAR HEMOGLOBIN 29.9 pg (29.0-33.0); MEAN CORPUSCULAR HGB CONC 32.5 g/dl (32.0-37.0); MEAN CORPUSCULAR VOLUME 92.1 fl (82.0-101.0); MEAN PLATELET VOLUME 11.1 fl (7.4-10.4); MONOCYTE # 0.7 10^3/ul (0.3-0.9); MONOCYTES % 7.9 % (0.0-11.0); NEUTROPHILS % 53.8 % (39.0-77.0); PLATELET COUNT 242 10^3/UL (140-415); RED BLOOD COUNT 3.94 10^6/ul (4.20-5.40); RED CELL DISTRIBUTION WIDTH 13.2 % (11.5-14.5)
[2018-11-09] MEDS: CIPROFLOXACIN 500 MG TAB PO ×2 (05:34→18:25)
[2018-11-09] MEDS: PANTOPRAZOLE (EC) 40 MG TAB PO (05:34)
[2018-11-09 05:37] LABS: ANION GAP 6 (5-13); BLOOD UREA NITROGEN 11 mg/dl (7-20); CALCIUM 9.3 mg/dl (8.4-10.2); CARBON DIOXIDE 27 mmol/L (21-31); CHLORIDE 107 mmol/L (97-110); CREATININE 0.93 mg/dl (0.44-1.00); Estimated GFR > 60 mL/min (>60); GLUCOSE 107 mg/dl (70-220); POTASSIUM 3.7 mmol/L (3.5-5.1); SODIUM 140 mmol/L (135-144)
[2018-11-09] MEDS: ACETAZOLAMIDE (SR) 500 MG CAP PO (08:11)
[2018-11-09] MEDS: METHOCARBAMOL 750 MG TAB PO ×2 (08:12→21:09)
[2018-11-09] MEDS: SOD CHLORIDE 0.9% 1,000 ML IV ×2 (11:24→18:36)
[2018-11-09] MEDS: INFLUENZA VIRUS VACCINE 0.5 ML (DISPENSING) IM* (11:29)
[2018-11-09] MEDS: PANTOPRAZOLE 40 MG INJ IV (13:28)
[2018-11-10] MEDS: HYDROCODONE/APAP (10/325) TAB PO ×4 (00:33→22:33)
[2018-11-10] MEDS: HYDROmorphONE 1 MG/ML SYG IV ×5 (01:16→21:12)
[2018-11-10] MEDS: SOD CHLORIDE 0.9% 1,000 ML IV ×2 (01:18→18:18)
[2018-11-10] MEDS: CIPROFLOXACIN 500 MG TAB PO ×2 (05:20→18:13)
[2018-11-10] MEDS: PANTOPRAZOLE (EC) 40 MG TAB PO (05:20)
[2018-11-10] MEDS: METHOCARBAMOL 750 MG TAB PO ×2 (08:57→21:12)
[2018-11-10] MEDS: ACETAZOLAMIDE (SR) 500 MG CAP PO (08:57)
[2018-11-10] MEDS: ONDANSETRON 4 MG INJ IV (18:13)
[2018-11-10] MEDS: DROSPIRENONE PO (22:07)
[2018-11-10] MEDS: ETHINYL ESTRADIOL PO (22:07)
[2018-11-11] MEDS: HYDROmorphONE 1 MG/ML SYG IV ×3 (01:11→10:14)
[2018-11-11] MEDS: HYDROCODONE/APAP (10/325) TAB PO ×2 (04:59→12:30)
[2018-11-11] MEDS: CIPROFLOXACIN 500 MG TAB PO (05:00)
[2018-11-11] MEDS: PANTOPRAZOLE (EC) 40 MG TAB PO (05:00)
[2018-11-11] MEDS: ACETAZOLAMIDE (SR) 500 MG CAP PO (09:21)
[2018-11-11] MEDS: METHOCARBAMOL 750 MG TAB PO (09:21)
[2018-11-11] MEDS: ONDANSETRON 4 MG INJ IV ×2 (09:25→21:29)
[2018-11-11] MEDS: METOCLOPRAMIDE 10 MG INJ IV (12:30)
[2018-11-11] MEDS: SOD CHLORIDE 0.9% 1,000 ML IV (13:30)
[2018-11-11] MEDS: CELECOXIB 200 MG CAP PO ×2 (16:41→21:29)
[2018-11-11] MEDS: DEXAMETHASONE 4 MG/ML 1 ML INJ IV ×3 (16:41→23:59)
[2018-11-11] MEDS: IBUPROFEN 600 MG TAB PO ×2 (16:41→21:29)
[2018-11-11] MEDS: traMADol 50 MG TAB PO (21:30)
[2018-11-11] MEDS: DROSPIRENONE PO (21:30)
[2018-11-11] MEDS: ETHINYL ESTRADIOL PO (21:30)
[2018-11-12] MEDS: SOD CHLORIDE 0.9% 1,000 ML IV ×3 (03:48→22:14)
[2018-11-12] MEDS: HYDROmorphONE 1 MG/ML SYG IV (04:00)
[2018-11-12] MEDS: DEXAMETHASONE 4 MG/ML 1 ML INJ IV ×4 (04:27→19:17)
[2018-11-12 05:23] LABS: ADD MAN DIFF? NO
[2018-11-12 05:26] LABS: WHITE BLOOD COUNT 5.2 10^3/ul (4.8-10.8)
[2018-11-12 05:26] LABS: BASOPHILS % 0.2 % (0.0-2.0); HEMATOCRIT 40.4 % (37.0-47.0); HEMOGLOBIN 13.3 g/dl (12.0-16.0); LYMPHOCYTES # 1.3 10^3/ul (0.8-2.9); LYMPHOCYTES % 25.6 % (15.0-51.0); MEAN CORPUSCULAR HEMOGLOBIN 29.8 pg (29.0-33.0); MEAN CORPUSCULAR HGB CONC 32.9 g/dl (32.0-37.0); MEAN CORPUSCULAR VOLUME 90.4 fl (82.0-101.0); MEAN PLATELET VOLUME 10.9 fl (7.4-10.4); MONOCYTE # 0.1 10^3/ul (0.3-0.9); MONOCYTES % 1.5 % (0.0-11.0); NEUTROPHIL # 3.8 10^3/ul (1.6-7.5); NEUTROPHILS % 72.3 % (39.0-77.0); PLATELET COUNT 329 10^3/UL (140-415); RED BLOOD COUNT 4.47 10^6/ul (4.20-5.40); RED CELL DISTRIBUTION WIDTH 12.4 % (11.5-14.5)
[2018-11-12 06:01] LABS: ANION GAP 11 (5-13); BLOOD UREA NITROGEN 11 mg/dl (7-20); CALCIUM 9.8 mg/dl (8.4-10.2); CARBON DIOXIDE 17 mmol/L (21-31); CHLORIDE 111 mmol/L (97-110); CREATININE 0.78 mg/dl (0.44-1.00); Estimated GFR > 60 mL/min (>60); GLUCOSE 134 mg/dl (70-220); POTASSIUM 3.8 mmol/L (3.5-5.1); SODIUM 139 mmol/L (135-144)
[2018-11-12] MEDS: PANTOPRAZOLE (EC) 40 MG TAB PO (06:26)
[2018-11-12] MEDS: IBUPROFEN 600 MG TAB PO ×3 (09:51→20:29)
[2018-11-12] MEDS: ACETAZOLAMIDE (SR) 500 MG CAP PO (09:52)
[2018-11-12] MEDS: CELECOXIB 200 MG CAP PO ×2 (09:52→20:29)
[2018-11-12] MEDS: traMADol 50 MG TAB PO ×3 (10:47→20:29)
[2018-11-12] MEDS: DROSPIRENONE PO (20:29)
[2018-11-12] MEDS: ETHINYL ESTRADIOL PO (20:29)
[2018-11-13] MEDS: DEXAMETHASONE 4 MG/ML 1 ML INJ IV ×3 (00:31→12:11)
[2018-11-13] MEDS: PANTOPRAZOLE (EC) 40 MG TAB PO (05:59)
[2018-11-13] MEDS: HYDROmorphONE 1 MG/ML SYG IV (06:25)
[2018-11-13] MEDS: ACETAZOLAMIDE (SR) 500 MG CAP PO (10:08)
[2018-11-13] MEDS: CELECOXIB 200 MG CAP PO ×2 (10:09→21:12)
[2018-11-13] MEDS: IBUPROFEN 600 MG TAB PO ×3 (10:09→21:12)
[2018-11-13] MEDS: traMADol 50 MG TAB PO ×3 (10:10→21:13)
[2018-11-13] MEDS: ENOXAPARIN 30 MG/0.3 ML SYG SC (10:11)
[2018-11-13] MEDS ORDERED: DEXAMETHASONE 10 MG/ML 1 ML INJ PO (20:00)
[2018-11-13] MEDS: DEXAMETHASONE 2 MG TAB PO (20:14)
[2018-11-13] MEDS: DROSPIRENONE PO (21:16)
[2018-11-13] MEDS: ETHINYL ESTRADIOL PO (21:16)
[2018-11-13] MEDS ORDERED: HYDROmorphONE 2 MG TAB PO (22:00)
[2018-11-14] MEDS: DEXAMETHASONE 2 MG TAB PO (01:24)
[2018-11-14] MEDS: PANTOPRAZOLE (EC) 40 MG TAB PO (05:41)
[2018-11-14] MEDS: CELECOXIB 200 MG CAP PO ×2 (08:47→21:08)
[2018-11-14] MEDS: traMADol 50 MG TAB PO ×3 (08:49→21:09)
[2018-11-14] MEDS: ENOXAPARIN 30 MG/0.3 ML SYG SC (08:51)
[2018-11-14] MEDS ORDERED: METHYLPREDNISOLONE (MEDROL) DOSE PACK PO (10:30)
[2018-11-14] MEDS: IBUPROFEN 600 MG TAB PO ×3 (10:45→21:08)
[2018-11-14] MEDS: ACETAZOLAMIDE (SR) 500 MG CAP PO (10:45)
[2018-11-14] MEDS: METHYLPREDNISOLONE 4 MG TAB PO (11:41)
[2018-11-14 14:03] LABS: ADD MAN DIFF? NO
[2018-11-14 14:06] LABS: WHITE BLOOD COUNT 13.4 10^3/ul (4.8-10.8)
[2018-11-14 14:06] LABS: BASOPHILS % 0.1 % (0.0-2.0); HEMATOCRIT 44.2 % (37.0-47.0); HEMOGLOBIN 14.3 g/dl (12.0-16.0); LYMPHOCYTES # 2.2 10^3/ul (0.8-2.9); LYMPHOCYTES % 16.1 % (15.0-51.0); MEAN CORPUSCULAR HEMOGLOBIN 29.5 pg (29.0-33.0); MEAN CORPUSCULAR HGB CONC 32.4 g/dl (32.0-37.0); MEAN CORPUSCULAR VOLUME 91.3 fl (82.0-101.0); MEAN PLATELET VOLUME 11.5 fl (7.4-10.4); MONOCYTE # 0.5 10^3/ul (0.3-0.9); MONOCYTES % 3.9 % (0.0-11.0); NEUTROPHIL # 10.6 10^3/ul (1.6-7.5); NEUTROPHILS % 79.2 % (39.0-77.0); PLATELET COUNT 396 10^3/UL (140-415); RED BLOOD COUNT 4.84 10^6/ul (4.20-5.40)
[2018-11-14 14:25] LABS: ANION GAP 14 (5-13); BLOOD UREA NITROGEN 17 mg/dl (7-20); CALCIUM 9.5 mg/dl (8.4-10.2); CARBON DIOXIDE 18 mmol/L (21-31); CHLORIDE 108 mmol/L (97-110); CREATININE 0.73 mg/dl (0.44-1.00); Estimated GFR > 60 mL/min (>60); GLUCOSE 139 mg/dl (70-220); POTASSIUM 3.7 mmol/L (3.5-5.1); SODIUM 140 mmol/L (135-144)
[2018-11-14] MEDS: CEPHALEXIN 250 MG CAP PO ×3 (14:53→23:45)
[2018-11-14 18:18] LABS: ADD UMIC YES; UR ASCORBIC ACID NEGATIVE (NEGATIVE); UR BACTERIA FEW /HPF (NONE SEEN); UR BILIRUBIN (Dip) NEGATIVE (NEGATIVE); UR BLOOD (Dip) NEGATIVE (NEGATIVE); UR CLARITY CLEAR (CLEAR); UR COLOR YELLOW (YELLOW); UR GLUCOSE (Dip) NEGATIVE (NEGATIVE); UR KETONES (Dip) NEGATIVE (NEGATIVE); UR LEUKOCYTE ESTERASE (Dip) 3+ Leu/ul (NEGATIVE); UR NITRITE (Dip) NEGATIVE (NEGATIVE); UR RBC 0 /HPF (0-5); UR SPECIFIC GRAVITY (Dip) 1.011 (1.003-1.030); UR SQUAMOUS EPITHELIAL CELL FEW /HPF (FEW); UR TOTAL PROTEIN (Dip) NEGATIVE (NEGATIVE); UR UROBILINOGEN (Dip) NEGATIVE (NEGATIVE); UR WBC 5 /HPF (0-5)
[2018-11-14] MEDS: ETHINYL ESTRADIOL PO (21:15)
[2018-11-14] MEDS: DROSPIRENONE PO (21:15)
[2018-11-15 05:46] LABS: ADD MAN DIFF? NO
[2018-11-15 05:49] LABS: ABNORMAL IP MESSAGE 1; BASOPHILS % 0.1 % (0.0-2.0); EOSINOPHILS % 0.1 % (0.0-7.0); HEMATOCRIT 39.3 % (37.0-47.0); LYMPHOCYTES # 5.8 10^3/ul (0.8-2.9); LYMPHOCYTES % 38.3 % (15.0-51.0); MEAN CORPUSCULAR HGB CONC 33.1 g/dl (32.0-37.0); MEAN CORPUSCULAR VOLUME 90.8 fl (82.0-101.0); MEAN PLATELET VOLUME 11.5 fl (7.4-10.4); MONOCYTE # 1.1 10^3/ul (0.3-0.9); MONOCYTES % 7.5 % (0.0-11.0); NEUTROPHILS % 53.5 % (39.0-77.0); PLATELET COUNT 329 10^3/UL (140-415); RED BLOOD COUNT 4.33 10^6/ul (4.20-5.40); RED CELL DISTRIBUTION WIDTH 13.1 % (11.5-14.5)
[2018-11-15] MEDS: PANTOPRAZOLE (EC) 40 MG TAB PO (06:10)
[2018-11-15] MEDS: CEPHALEXIN 250 MG CAP PO ×4 (06:10→23:35)
[2018-11-15 06:12] LABS: ANION GAP 10 (5-13); BLOOD UREA NITROGEN 19 mg/dl (7-20); CALCIUM 8.7 mg/dl (8.4-10.2); CARBON DIOXIDE 17 mmol/L (21-31); CHLORIDE 114 mmol/L (97-110); CREATININE 0.77 mg/dl (0.44-1.00); Estimated GFR > 60 mL/min (>60); GLUCOSE 101 mg/dl (70-220); POTASSIUM 3.5 mmol/L (3.5-5.1); SODIUM 141 mmol/L (135-144)
[2018-11-15 06:24] LABS: POSITIVE DIFF @See below
[2018-11-15] MEDS: METHYLPREDNISOLONE 4 MG TAB PO ×4 (07:59→20:16)
[2018-11-15] MEDS: traMADol 50 MG TAB PO ×4 (07:59→20:16)
[2018-11-15] MEDS: CELECOXIB 200 MG CAP PO ×2 (09:08→20:17)
[2018-11-15] MEDS: ACETAZOLAMIDE (SR) 500 MG CAP PO (09:08)
[2018-11-15] MEDS: IBUPROFEN 600 MG TAB PO ×3 (09:09→20:17)
[2018-11-15] MEDS: ENOXAPARIN 30 MG/0.3 ML SYG SC (09:13)
[2018-11-15] MEDS: ETHINYL ESTRADIOL PO (20:20)
[2018-11-15] MEDS: DROSPIRENONE PO (20:20)
[2018-11-15] MEDS: SENNA TAB PO (21:39)
[2018-11-15] MEDS: DOCUSATE SODIUM 100 MG CAP PO (21:39)
[2018-11-16] MEDS: CEPHALEXIN 250 MG CAP PO ×2 (05:20→12:33)
[2018-11-16] MEDS: PANTOPRAZOLE (EC) 40 MG TAB PO (05:20)
[2018-11-16] MEDS: traMADol 50 MG TAB PO ×2 (08:35→12:41)
[2018-11-16] MEDS: IBUPROFEN 600 MG TAB PO ×2 (08:35→12:33)
[2018-11-16] MEDS: CELECOXIB 200 MG CAP PO (08:35)
[2018-11-16] MEDS: METHYLPREDNISOLONE 4 MG TAB PO ×3 (08:36→15:03)
[2018-11-16] MEDS: ACETAZOLAMIDE (SR) 500 MG CAP PO (08:37)
[2018-11-16] MEDS: ENOXAPARIN 30 MG/0.3 ML SYG SC (09:40)
[2018-11-16] MEDS ORDERED: METHYLPREDNISOLONE 4 MG TAB PO (21:00)
== END 2018-11-16 13:25 | disposition home or self-care (01) | DRG 552 ==
LOC: E/R 21:49 → MS1 11-08 01:55
DX: M54.16 Radiculopathy, lumbar region (principal); N17.9 Acute kidney failure, unspecified; E87.2 Acidosis; N39.0 Urinary tract infection, site not specified; D72.829 Elevated white blood cell count, unspecified; E66.9 Obesity, unspecified; Z68.34 Body mass index [BMI] 34.0-34.9, adult; G93.2 Benign intracranial hypertension; J45.909 Unspecified asthma, uncomplicated; Z98.1 Arthrodesis status; B96.89 Other specified bacterial agents as the cause of diseases classified elsewhere
CPT/HCPCS: 36415; 72131; 72192; 80048; 80053; 81001; 83690; 85025; 85610; 85730; 87086; 90686; 96374; 96375; 97110; 97116; 97161; 97530; 99285-25

== ENCOUNTER 2019-05-04 08:44 | Emergency (ER) | payer BC ==
[2019-05-04] MEDS: SOD CHLORIDE 0.9% 1,000 ML IV (09:34)
[2019-05-04] MEDS: ONDANSETRON 4 MG INJ IV ×2 (09:34→19:04)
[2019-05-04] MEDS: HYDROmorphONE 1 MG/ML SYG IV ×2 (09:34→19:04)
[2019-05-04] MEDS: HYDROmorphONE 2 MG/ML SYG IV ×2 (12:02→16:13)
[2019-05-04] MEDS: CEFTRIAXONE 1 GM/50 ML (PMX) 50 ML IVPB (12:02)
[2019-05-04] MEDS ORDERED: ONDANSETRON 4 MG INJ (19:02)
== END 2019-05-04 19:46 | disposition home or self-care (01) ==
LOC: E/R 08:44
DX: M54.42 Lumbago with sciatica, left side (principal); R40.2142 Coma scale, eyes open, spontaneous, at arrival to emergency department; R40.2362 Coma scale, best motor response, obeys commands, at arrival to emergency department; R40.2252 Coma scale, best verbal response, oriented, at arrival to emergency department; J45.909 Unspecified asthma, uncomplicated; Z98.890 Other specified postprocedural states
CPT/HCPCS: 36415; 72131; 72158; 80048; 81001; 81025; 84484; 85025; 85610; 85730; 87086; 93005; 96374; 96375; 96376; 99285-25